=== PATIENT | female | born 1945 | race Caucasian/White ===

== ENCOUNTER 2017-02-09 00:27 | Emergency (ER) | payer OTHER ==
[~2017-02-09] VITALS: Ht 162.6 cm; Wt 60.0 kg
[~2017-02-09 00:27] MED LIST: CITA40TA4 PO; LEVO75TA3 PO; OMEP40CA2 PO; SIMV40TA PO
[2017-02-09 00:31] VITALS: BP 108/53; PULSE 66; RESP 18; TEMP 98.6; O2SAT 95
[2017-02-09] MEDS ORDERED: ONDANSETRON HCL 4 MG/2 ML VIAL IV PUSH ONE (01:30)
[2017-02-09] MEDS ORDERED: HYDROmorphone HCL PF 0.5 MG/0.5 ML SYRINGE IV PUSH ONE (01:30)
[2017-02-09] MEDS ORDERED: SODIUM CHLOR 0.9% 1000 ML INJ 1,000 ML IV SCH (01:30)
[2017-02-09] MEDS ORDERED: SODIUM CHLORID 0.9% 500 ML INJ 500 ML IV ONE (01:30)
[2017-02-09] MEDS ORDERED: IOHEXOL 350 MG/ML 10 ML VIAL (for RAD DIAG) IVCONTRAST ONE (01:40)
--- NOTE | 2017-02-09 01:49 | RADRPT ---
EXAM DATE/TIME: 02/09/2017 01:14 [facility] COMPARISON: No previous studies available for comparison. INDICATIONS : Right upper quadrant pain. MEDICAL HISTORY : Gastroesophageal reflux disease. Thyroid disease. SURGICAL HISTORY : Hysterectomy. Appendectomy. ENCOUNTER: Initial ACUITY: 1 day PAIN SCORE: 2/10 LOCATION: Right upper quadrant MEASUREMENTS: LIVER: 18.9 cm length COMMON DUCT: 5 mm RIGHT KIDNEY: 11.2 x 4.4 x 5.0 cm FINDINGS: LIVER: Normal echotexture without focal lesion or ductal dilatation. COMMON DUCT: No intraluminal mass or stone visualized. GALLBLADDER: Contains no stones, demonstrates no wall thickening or pericholecystic fluid. PANCREAS: The visualized portions are within normal limits. RIGHT KIDNEY: No evidence of hydronephrosis, stone, or mass. CONCLUSION: Nonspecific hepatomegaly. Otherwise normal right upper quadrant ultrasound. Cody Vasquez MD on February 09, 2017 at 1:47 Board Certified Radiologist. This report was verified electronically.
[2017-02-09 02:01] VITALS: BP 135/65; PULSE 68; RESP 18; O2SAT 95
--- NOTE | 2017-02-09 02:18 | PD ---
HPI Chief Complaint: Abdominal Pain Time Seen by Provider: 00:52 Travel History International Travel<30 days: No Contact w/Intl Traveler<30days: No Traveled to known affect area: No History of Present Illness HPI 71-year-old female presents to the emergency department by EMS transport from [facility] emergency department where she was assessed for abdominal pain. Patient had normal lab values and exam was reportedly concerning for right upper quadrant abdominal pain and possible cholecystitis. Patient was sent to the emergency department for ultrasound of the gallbladder. Patient's case discussed with Dr. Bui. Patient here states she's been sick for approximately 5 weeks with a respiratory illness with cough and congestion and has been treated on several antibiotics. Patient is also been on steroids. Patient states because of coughing so much she started noticing lower abdominal pain and coughing does worsen her symptoms. Patient's had nausea with vomiting today but denies any diarrhea or mucoid or bloody diarrhea and also denies any bilious emesis hematemesis or coffee-ground emesis. Patient denies any chest pain or shortness of breath. Patient denies any dysuria frequency urgency flank pain or hematuria. Patient rates her pain as moderate to severe primarily periumbilical and left lower quadrant. No prior history of colitis or diverticulitis. Patient states she does not have right upper quadrant pain at this time. Patient is able to identify exacerbating or alleviating factors. Patient is status post previous appendectomy and hysterectomy. [facility] Past Medical History Narrative Medical Dyslipidemia constipation hypothyroidism Depression appendectomy hysterectomy right hip arthroplasty; no tobacco use no alcohol use; nursing notes reviewed Depression: Yes Diminished Hearing: No GERD: Yes Immunizations Current: Yes Thyroid Disease: Yes Tetanus Vaccination: Unknown Influenza Vaccination: No (guill[place] barre) ?: Not Past Surgical History Appendectomy: Yes Hysterectomy: Yes Social History Alcohol Use: No Tobacco Use: No Substance Use: No Allergies-Medications (Allergen,Severity, Reaction): Coded Allergies: No Known Allergies (Unverified , 02/08/17) Reported Meds & Prescriptions Reported Meds & Active Scripts Active Reported Simvastatin 40 Mg Tab 40 Mg PO HS Levothyroxine (Levothyroxine Sodium) 75 Mcg Tab 75 Mcg PO DAILY Omeprazole 40 Mg Cap 40 Mg PO DAILY Citalopram (Citalopram Hydrobromide) 40 Mg Tab 40 Mg PO DAILY Review of Systems Except as stated in HPI: all other systems reviewed are Neg General / Constitutional: No: Fever, Chills HENT: No: Congestion Cardiovascular: No: Chest Pain or Discomfort, Palpitations, Diaphoresis Respiratory: Positive: Cough, No: Shortness of Breath, Wheezing, Pleuritic Pain Gastrointestinal: Positive: Nausea, Vomiting, Abdominal Pain, Constipation, No : Loss of Appetite Genitourinary: No: Urgency, Frequency, Dysuria, Hematuria, Flank Pain Musculoskeletal: No: Myalgias, Arthralgias Skin: No Rash Neurologic: No: Weakness Psychiatric: No: Anxiety Hematologic/Lymphatic: No: Lymph Node Enlargement Physical Exam Narrative GENERAL: Well-developed well-nourished female in no acute distress no respiratory distress SKIN: Warm and dry. HEAD: Normocephalic. EYES: No scleral icterus. No injection or drainage. NECK: Supple, trachea midline. No JVD or lymphadenopathy. CARDIOVASCULAR: Regular rate and rhythm without murmurs, gallops, or rubs. RESPIRATORY: Breath sounds equal bilaterally. No accessory muscle use. GASTROINTESTINAL: Abdomen soft, periumbilical and left lower quadrant greater than right lower quadrant tenderness to palpation without guarding or rebound, nondistended. MUSCULOSKELETAL: No cyanosis, or edema. BACK: Nontender without obvious deformity. No CVA tenderness. Data Data Last Documented VS Vital Signs Date Time Temp Pulse Resp B/P (MAP) Pulse Ox O2 Delivery O2 Flow Rate FiO2 02/09/17 02:01 68 18 135/65 (88) 95 Room Air 02/09/17 00:31 98.6 Orders Orders Us Abdomen Gallbladder (02/09/17 ) Ct Abd/Pel W Iv Contrast(Rout) (02/09/17 ) Ondansetron Inj (Zofran Inj) (02/09/17 01:30) Hydromorphone Pf Inj (Dilaudid Pf Inj) (02/09/17 01:30) Sodium Chlorid 0.9% 500 Ml Inj (Ns 500 M (02/09/17 01:30) Sodium Chlor 0.9% 1000 Ml Inj (Ns 1000 M (02/09/17 01:30) Iohexol 350 Inj (Omnipaque 350 Inj) (02/09/17 01:40) Ed Discharge Order (02/09/17 02:53) MDM Medical Decision Making Medical Screen Exam Complete: Yes Emergency Medical Condition: Yes Medical Record Reviewed: Yes Interpretation(s) Last Impressions Gall Bladder Ultrasound 02/09/17 0000 Signed Impressions: Service Date/Time: January 01:14 - CONCLUSION: Nonspecific hepatomegaly. Otherwise normal right upper quadrant ultrasound. Cody Vasquez MD Abdomen/Pelvis CT 02/09/17 0000 Signed Impressions: Service Date/Time: January 01:35 - CONCLUSION: 1. Enlarged liver with mild fatty infiltration. 2. No obstruction or acute inflammatory changes of the gastrointestinal tract. 3. Small to moderate hiatal hernia. 4. Aortoiliac atherosclerosis. 5. 4 mm left lung base nodule and also some mildly nodular atelectasis of the bases. Followup noncontrast chest CT is recommended in 6 months. 6. Benign-appearing left renal cyst. Cody Vasquez MD Vital Signs Date Time Temp Pulse Resp B/P (MAP) Pulse Ox O2 Delivery O2 Flow Rate FiO2 02/09/17 02:01 68 18 135/65 (88) 95 Room Air 02/09/17 00:31 98.6 66 18 108/53 (71) 95 Differential Diagnosis Abdominal pain, biliary colic, gastritis, peptic ulcer disease, pancreatitis, ischemic colitis, diverticulitis, UTI, abdominal wall strain Narrative Course Patient accepted in transfer of care from [facility] from Dr. Bui who evaluated patient with CBC found to be in normal range complete metabolic panel found to be in normal range lipase found to be within normal limits and urinalysis found to be in normal range with abdominal flat and upright imaging studies revealed no acute process and obstruction. Patient was sent to have ultrasound of the gallbladder for possible biliary colic/cholecystitis. Patient here reports that she's had lower abdominal pain and periumbilical pain. Imaging studies have been ordered; lab work has not been repeated as just done within the past several hours. Patient requesting pain medication administered Zofran 4 mg IV and Dilaudid 0.2 mg IV maintenance IV fluids administered Diagnosis Primary Impression: Abdominal wall pain Referrals: Primary Care Physician call for appointment Patient Instructions: General Instructions, Narcotic given in the ED Additional Instructions: Increase fluid hydration Follow-up with your primary care provider call office to schedule follow-up appointment Monitor temperature for fever and take as needed acetaminophen/Tylenol for fever 100.4 days Fahrenheit or greater May use as tolerated ibuprofen/Advil/Motrin 600 mg every 6-8 hours as needed for pain associated with inflammation or for fever 100.4F or greater Avoid fried or fatty foods Return to the emergency department for any concerns or change in condition Med/Other Pt SpecificInfo: No Change to Meds Disposition: 01 DISCHARGE HOME Condition: Stable Yaneli Vick MD Feb 09, 2017 02:18
--- NOTE | 2017-02-09 02:35 | RADRPT ---
EXAM DATE/TIME: 02/09/2017 01:35 [facility] COMPARISON: US ABDOMEN - GALLBLADDER, February 09, 2017, 1:14. INDICATIONS : Periumbilical pain. IV CONTRAST: 98 cc Omnipaque 350 (iohexol) IV ORAL CONTRAST: No oral contrast ingested. RADIATION DOSE: 6.64 CTDIvol (mGy) MEDICAL HISTORY : Gastroesophageal reflux disease. SURGICAL HISTORY : Appendectomy. Hysterectomy.right hip ENCOUNTER: Initial ACUITY: 1 yr PAIN SCALE: 7/10 LOCATION: abdomen TECHNIQUE: Volumetric scanning of the abdomen and pelvis was performed. Using automated exposure control and ad justment of the mA and/or kV according to patient size, radiation dose was kept as low as reasonably achievable to obtain optimal diagnostic quality images. DICOM format image data is available electro nically for review and comparison. FINDINGS: LOWER LUNGS: Tiny right Bochdalek hernia there is an adjacent 15 mm area of nodular consolidation posteromedially of the right lung base, most likely atelectasis. There is a 4 mm nodule of the left lower lobe. LIVER: 19 cm cranial caudal and slightly fatty infiltrated. No focal hepatic lesion. The CT appearance of th e gallbladder within normal limits. SPLEEN: Normal size without lesion. PANCREAS: Within normal limits. KIDNEYS: 21 mm benign appearing left mid zone cyst. No hydronephrosis or hydroureter on either side. ADRENAL GLANDS: Within normal limits. VASCULAR: There is aortoiliac atherosclerosis. No aneurysm. BOWEL/MESENTERY: The stomach, small bowel, and colon demonstrate no acute abnormality. There is no free intraperitone al air or fluid. Small to moderate hiatal hernia. ABDOMINAL WALL: Within normal limits. RETROPERITONEUM: There is no lymphadenopathy. BLADDER: No wall thickening or mass. REPRODUCTIVE: Within normal limits. INGUINAL: There is no lymphadenopathy or hernia. MUSCULOSKELETAL: No acute bony abnormalities demonstrated. Previous right hip arthroplasty. CONCLUSION: 1. Enlarged liver with mild fatty infiltration. 2. No obstruction or acute inflammatory changes of the gastrointestinal tract. 3. Small to moderate hiatal hernia. 4. Aortoiliac atherosclerosis. 5. 4 mm left lung base nodule and also some mildly nodular atelectasis of the bases. Followup noncont rast chest CT is recommended in 6 months. 6. Benign-appearing left renal cyst. Cody Vasquez MD on February 09, 2017 at 2:29 Board Certified Radiologist. This report was verified electronically.
== END 2017-02-09 03:47 | disposition home or self-care (01) ==
LOC: NEPC 00:27
DX: R10.11 Right upper quadrant pain (principal); R10.33 Periumbilical pain; K76.0 Fatty (change of) liver, not elsewhere classified; K44.9 Diaphragmatic hernia without obstruction or gangrene; N28.1 Cyst of kidney, acquired; R16.0 Hepatomegaly, not elsewhere classified; R19.7 Diarrhea, unspecified; K21.9 Gastro-esophageal reflux disease without esophagitis; E03.9 Hypothyroidism, unspecified
CPT/HCPCS: 74020; 74177; 76705; 80053; 81001; 83690; 85025; 96361; 96374; 96375; 99284; 99285; J1170; J1885; J2060; J2405; J2765; J7030; J7040; Q9967